=== PATIENT | female | born 1990 | race Caucasian/White ===

== ENCOUNTER 2018-04-08 14:42 | Emergency (ER) | payer SELFPAY ==
[2018-04-08] MEDS: DERMABOND TOPICAL SKIN ADHESIVE TOP (15:55)
== END 2018-04-08 16:56 | disposition home or self-care (01) ==
LOC: M ED 14:42
DX: S01.81XA Laceration without foreign body of other part of head, initial encounter (principal); W01.10XA Fall on same level from slipping, tripping and stumbling with subsequent striking against unspecified object, initial encounter; Y92.89 Other specified places as the place of occurrence of the external cause; Y93.9 Activity, unspecified; Y99.9 Unspecified external cause status; Z79.899 Other long term (current) drug therapy
CPT/HCPCS: 12013

== ENCOUNTER 2018-04-11 13:42 | Emergency (ER) | payer SELFPAY ==
[2018-04-11] MEDS: ADACEL/BOOSTRIX VACCINE (DIPHTH/PERTUSS/ACELL/TETANUS)0.5ML SYR (90715) IM (16:24)
== END 2018-04-11 16:46 | disposition home or self-care (01) ==
LOC: M ED 13:42
DX: L08.9 Local infection of the skin and subcutaneous tissue, unspecified (principal); S01.81XS Laceration without foreign body of other part of head, sequela; W01.0XXS Fall on same level from slipping, tripping and stumbling without subsequent striking against object, sequela; Y92.89 Other specified places as the place of occurrence of the external cause; F41.9 Anxiety disorder, unspecified
CPT/HCPCS: 90715